=== PATIENT | male | born 1980 | race Caucasian/White ===

== ENCOUNTER 2020-06-12 09:00 | Day surgery (SDC) | payer OTHER ==
[2020-06-08 12:56] VITALS: BMI 28.1
[2020-06-12] MEDS ORDERED: MIDAZOLAM HCL 2 MG/2 ML SINGLE DOSE VIAL ONE (12:29)
[2020-06-12] MEDS ORDERED: ROPIVACAINE HCL 0.5% 30ML VIAL ONE (12:29)
[2020-06-12] MEDS ORDERED: SUCCINYLCHOLINE CHLORIDE 200 MG/10 ML SYRINGE ONE (12:47)
[2020-06-12] MEDS ORDERED: PROPOFOL 20 ML ONE ×2 (12:47)
[2020-06-12] MEDS ORDERED: BUPIVACAINE HCL/PF 2.5 MG/ML - 30 ML VIAL IJ ONE (14:24)
[2020-06-12] MEDS ORDERED: BUPIVACAINE HCL/PF 0.25% (2.5MG/ML) 10 ML VIAL IJ ONE (14:26)
[2020-06-12] MEDS ORDERED: oxyCODONE HCL 5 MG TABLET PO PRN (14:47)
[2020-06-12] MEDS ORDERED: ONDANSETRON 4 MG/2 ML VIAL IVPUSH PRN (14:47)
[2020-06-12 16:28] VITALS: PULSE 81; TEMP 98
[2020-06-12 16:31] VITALS: BP 131/74
== END 2020-06-12 16:25 | disposition home or self-care (01) ==
LOC: FASU 09:00
PROVIDERS: ATTEND Orthopaedic Surgery
PROC: 0PSB04Z Reposition Left Clavicle with Internal Fixation Device, Open Approach (ICD-10-PCS; principal; 2020-06-12)
DX: S42.002A Fracture of unspecified part of left clavicle, initial encounter for closed fracture (principal); X58.XXXA Exposure to other specified factors, initial encounter; Y93.9 Activity, unspecified; Y92.9 Unspecified place or not applicable
CPT/HCPCS: 23515; C1713; 94760